=== PATIENT | female | born 1995 | race Caucasian/White ===

== ENCOUNTER 2016-03-27 17:02 | Emergency (ER) | payer BC ==
[~2016-03-27] VITALS: Ht 157.5 cm; Wt 82.0 kg
[~2016-03-27 17:02] MED LIST: AMOXICILLIN 8751 TAB PO; CLEOCIN HCL300 MG PO; FELDENE20 MG PO; FLOXIN 10 ML10 ML OT; LEVAQUIN 750MG750 M1 PO; WELLBUTRIN SR100 M1 PO; WELLBUTRIN XL150 MG PO; ZOLOFT 100MG100 MG PO
[2016-03-27 17:21] VITALS: TEMP 98.2
[2016-03-27 19:36] VITALS: BP 124/83; PULSE 98
== END 2016-03-27 19:37 | disposition home or self-care (01) ==
LOC: COL.ER 17:02
DX: J02.8 Acute pharyngitis due to other specified organisms (principal)
CPT/HCPCS: J8540

== ENCOUNTER → 2018-07-21 | Outpatient (CLI) | payer BC | LOC: ZCOL.LAB 17:44 | DX: Z01.812 Encounter for preprocedural laboratory examination (principal); Z86.14 Personal history of Methicillin resistant Staphylococcus aureus infection ==

== ENCOUNTER 2018-08-13 23:24 | Emergency (ER) | payer BC, MEDICAID ==
[~2018-08-13] VITALS: Ht 160 cm; Wt 93.2 kg
[2018-08-13 23:35] VITALS: BP 132/81; TEMP 97
[2018-08-14] MEDS ORDERED: ATARAX 25MG25 MG/TAB PO ×2 (00:07)
[2018-08-14] MEDS ORDERED: PREDNISONE20 MG PO (00:17)
[2018-08-14 00:29] VITALS: PULSE 75
== END 2018-08-14 00:30 | disposition home or self-care (01) ==
LOC: COL.ER 23:24
DX: M79.671 Pain in right foot (principal); L25.9 Unspecified contact dermatitis, unspecified cause
CPT/HCPCS: J7512; Q4045

== ENCOUNTER 2020-06-26 15:52 | Emergency (ER) | payer BC, MEDICAID ==
[~2020-06-26] VITALS: Ht 162.6 cm; Wt 88.2 kg
[~2020-06-26 15:52] MED LIST changes: +ATARAX 25MG25 MG/TAB PO; +PREDNISONE20 MG PO
[2020-06-26 16:15] VITALS: TEMP 98
[2020-06-26 17:26] LABS: BASO % 0.4 % (0.0-2.0); EOS # 0.1 (0.0-0.7); EOS % 1.3 % (0-4.0); GRAN # 5.6 (1.4-6.5); GRAN % 68.6 % (42.2-75.2); HEMATOCRIT 40.2 % (37.0-47.0); HEMOGLOBIN 13.6 g/dl (12.5-16.0); LYMPH # 1.9 (1.2-3.4); MEAN CELL VOLUME 89 fl (80.0-100.0); MEAN CORPUSCULAR HEMOGLOBIN 30 pg (27.0-31.0); MEAN CORPUSCULAR HGB CONC 34 g/dl (33.0-37.0); MEAN PLATELET VOLUME 9.7 fl (7.4-10.4); MONO # 0.5 (0.1-0.6); MONO % 6.5 % (1.7-9.3); PLATELET COUNT 189 K/mm3 (130-400); RED BLOOD COUNT 4.51 M/mm3 (4.10-5.30); REDCELL DISTRIBUTION WIDTH-CV 13.2 % (11.5-14.5)
[2020-06-26 17:35] LABS: ALBUMIN 4.1 gm/dL (3.5-5.0); BILIRUBIN,TOTAL 0.6 mg/dL (0.0-1.0); CALCIUM 8.8 mg/dL (8.4-10.2); CREATININE, serum 0.84 (0.52-1.25); POTASSIUM 4.3 mmol/L (3.4-5.0); TOTAL PROTEIN 7.4 gm/dL (6.4-8.2)
[2020-06-26 18:15] VITALS: BP 107/84; PULSE 68
== END 2020-06-26 18:15 | disposition home or self-care (01) ==
LOC: COL.ER 15:52
PROVIDERS: Physician Assistant
DX: G43.409 Hemiplegic migraine, not intractable, without status migrainosus (principal); F84.5 Asperger's syndrome; Z79.899 Other long term (current) drug therapy
CPT/HCPCS: J1200; J2765; J7030

== ENCOUNTER 2020-06-29 18:37 | Emergency (ER) | payer BC, MEDICAID ==
[~2020-06-29] VITALS: Ht 162.6 cm; Wt 95.5 kg
[2020-06-29 18:48] VITALS: TEMP 98
[2020-06-29] MEDS ORDERED: TOPAMAX 100MG100 M1 PO (19:34)
[2020-06-29] MEDS ORDERED: VITAMIN D31000 IU PO (19:35)
[2020-06-29] MEDS ORDERED: IMITREX50 MG PO (19:35)
[2020-06-29] MEDS ORDERED: MAG-OX 400400 MG/TAB PO (19:35)
[2020-06-29] MEDS ORDERED: ALBUTEROL SULFAT3 M3 IH (19:36)
[2020-06-29] MEDS ORDERED: SINGULAIR 110 MG/TAB PO (19:36)
[2020-06-29] MEDS ORDERED: CLARITIN 1010 MG/TAB PO (19:36)
[2020-06-29] MEDS ORDERED: VENTOLIN0.09 MG IH (19:37)
[2020-06-29 22:44] VITALS: BP 117/65; PULSE 71
== END 2020-06-29 22:44 | disposition home or self-care (01) ==
LOC: COL.ER 18:37
DX: G43.909 Migraine, unspecified, not intractable, without status migrainosus (principal); Z79.899 Other long term (current) drug therapy
CPT/HCPCS: J1200; J1885; J7030

== ENCOUNTER 2020-09-21 21:52 | Emergency (ER) | payer BC, MEDICAID ==
[~2020-09-21] VITALS: Ht 162.6 cm; Wt 89.1 kg
[~2020-09-21 21:52] MED LIST changes: +ALBUTEROL SULFAT3 M3 IH; +CLARITIN 1010 MG/TAB PO; +IMITREX50 MG PO; +MAG-OX 400400 MG/TAB PO; +SINGULAIR 110 MG/TAB PO; +TOPAMAX 100MG100 M1 PO; +VENTOLIN0.09 MG IH; +VITAMIN D31000 IU PO
[2020-09-21] MEDS ORDERED: PREDNISONE20 MG PO (22:33)
[2020-09-21 23:29] VITALS: BP 114/75; PULSE 88; TEMP 98.1
== END 2020-09-21 23:29 | disposition home or self-care (01) ==
LOC: COL.ER 21:52
DX: L25.9 Unspecified contact dermatitis, unspecified cause (principal); G43.909 Migraine, unspecified, not intractable, without status migrainosus; F84.0 Autistic disorder; Z79.899 Other long term (current) drug therapy
CPT/HCPCS: J7512

== ENCOUNTER → 2023-07-28 | Outpatient (CLI) | payer BC, MEDICAID | LOC: MHCPAIN 10:06 | DX: M25.551 Pain in right hip (principal); R26.9 Unspecified abnormalities of gait and mobility; G24.9 Dystonia, unspecified | CPT/HCPCS: G0463 ==